=== PATIENT | female | born 1985 | race Caucasian/White ===

== ENCOUNTER 2021-12-01 17:36 | Emergency (ER) | payer OTHER ==
[~2021-12-01 17:36] MED LIST: COLACE 100MG C100 MG PO; DOXYCYCLINE MO100 MG PO; FERROCITE324 MG PO; HYDROCODON-ACE1 EAC4 PO; IBUPROFEN800 MG PO
[2021-12-01 18:17] LABS: HEMOGLOBIN 7.4 gm/dl (12.3-15.3); RED BLOOD COUNT 2.6 M/UL (4.00-5.10); WHITE BLOOD COUNT 8.6 K/UL (4.5-11.0)
[2021-12-01 18:33] LABS: BUN/CREATININE RATIO 26 (0-10)
== END 2021-12-01 19:35 | disposition home or self-care (01) ==
LOC: ER1 17:36
PROVIDERS: Physician Assistant Medical
DX: D64.9 Anemia, unspecified (principal)
CPT/HCPCS: 80053; 85025; 99283

== ENCOUNTER → 2021-12-02 | Outpatient (CLI) | payer OTHER | LOC: OPSV 13:59 | DX: D64.9 Anemia, unspecified (principal) | CPT/HCPCS: 96365; J1756 ==

== ENCOUNTER → 2021-12-06 | Outpatient (CLI) | payer OTHER ==
[2021-12-06 09:08] LABS: HEMOGLOBIN 8.5 gm/dl (12.3-15.3); RED BLOOD COUNT 2.99 M/UL (4.00-5.10); WHITE BLOOD COUNT 6.2 K/UL (4.5-11.0)
== END ==
LOC: LAB 08:28
PROVIDERS: Obstetrics & Gynecology
DX: O03.9 Complete or unspecified spontaneous abortion without complication (principal); O99.019 Anemia complicating pregnancy, unspecified trimester; Z3A.00 Weeks of gestation of pregnancy not specified
CPT/HCPCS: 36415; 84702; 85025

== ENCOUNTER → 2021-12-09 | Outpatient (CLI) | payer OTHER ==
[~2021-12-09] VITALS: Ht 154.9 cm; Wt 59.9 kg
== END ==
LOC: OPSV 14:00
DX: D64.9 Anemia, unspecified (principal)
CPT/HCPCS: 96365; J1756

== ENCOUNTER 2021-12-10 13:21 | Emergency (ER) | payer OTHER ==
[2021-12-10 13:51] LABS: HEMOGLOBIN 8.5 gm/dl (12.3-15.3); RED BLOOD COUNT 3.01 M/UL (4.00-5.10); WHITE BLOOD COUNT 6.4 K/UL (4.5-11.0)
[2021-12-10 14:27] LABS: BUN/CREATININE RATIO 22 (0-10)
[2021-12-10 17:07] LABS: HEMOGLOBIN 6.9 gm/dl (12.3-15.3)
[2021-12-10 22:15] LABS: HEMOGLOBIN 8.2 gm/dl (12.3-15.3)
== END 2021-12-10 22:33 | disposition home or self-care (01) ==
LOC: ER1 13:21
PROVIDERS: Family Medicine; Student in an Organized Health Care Education/Training Program
DX: N93.9 Abnormal uterine and vaginal bleeding, unspecified (principal); D64.9 Anemia, unspecified; Z87.59 Personal history of other complications of pregnancy, childbirth and the puerperium
CPT/HCPCS: 80053; 82962; 85014; 85018; 85025; 86850; 86900; 86901; 86920; 93005; 99284; P9016